=== PATIENT | male | born 1965 | race Caucasian/White ===

== ENCOUNTER 2018-05-27 16:24 | Outpatient (CLI) | payer MEDICARE | END 2018-05-27 16:25 | disposition home or self-care (01) | LOC: LAB 16:24 | PROVIDERS: ATTEND Internal Medicine | DX: M25.50 Pain in unspecified joint (principal); I10 Essential (primary) hypertension; E11.9 Type 2 diabetes mellitus without complications; K21.9 Gastro-esophageal reflux disease without esophagitis; Z87.891 Personal history of nicotine dependence; Z79.4 Long term (current) use of insulin | CPT/HCPCS: 36415; 84436; 84439; 85652; 86038; 86140; 86225; 86618 ==

== ENCOUNTER 2019-05-03 10:29 | Day surgery (SDC) | payer MEDICARE ==
[2019-05-03] MEDS ORDERED: NACL 0.9% 1000 ML 1,000 ML IV SCH (11:02)
[2019-05-03] MEDS ORDERED: DIPRIVAN 10 MG/ML IV ONE (11:14)
[2019-05-03] MEDS ORDERED: XYLOCAINE 2% INFILTRATI ONE (11:14)
--- NOTE | 2019-05-03 11:16 | Anesthesia Consultation ---
Anesthesia Consult and Med Hx Date of service: 05/03/19 - Airway Anesthetic Teeth Evaluation: Good (one loose) ROM Head & Neck: Adequate Mental/Hyoid Distance: Adequate Mallampati Class: Class III Intubation Access Assessment: Probably Good - Pulmonary Exam CTA: Yes - Cardiac Exam Cardiac Exam: No Murmur - Pre-Operative Health Status ASA Pre-Surgery Classification: ASA3 Proposed Anesthetic Plan: MAC - Pulmonary Hx Smoking: Yes (1 CIG A DAY) Hx Asthma: No COPD: No - Cardiovascular System Hx Hypertension: Yes - Central Nervous System Hx Seizures: No CVA: No - Endocrine Hx Cirrhosis: Yes Hx Liver Disease: Yes (HEPATITIS C, ESOPHAGEAL VARICES) Hx Insulin Dependent Diabetes: Yes (BS 98) - Hematic Hx Anemia: No - Other Systems Hx Alcohol Use: No
--- NOTE | 2019-05-03 11:16 | Anesthesia Day of Surgery ---
Anesthesia Day of Surgery - Day of Surgery Patient Examined: Yes Patient H&P Reviewed: Yes Patient is NPO: Yes Beta Blockers: Yes Cardiac Clearance: No Pulmonary Clearance: No
--- NOTE | 2019-05-03 11:38 | Short Stay Summary ---
Short Stay Documentation Date of service: 05/03/19 - History H&P: obtained from office - Allergies and Medications Current Medications: Allergies No Known Allergies Allergy (Verified 08/30/14 09:57) Home Medications Medication Instructions Recorded Confirmed Last Taken Type RX: Insulin Aspart [NovoLOG 22 units SC DAILY 08/30/14 05/03/19 05/02/19 History Flexpen] RX: Lansoprazole (Nf) [Prevacid 30 mg PO DAILY 08/30/14 05/03/19 05/02/19 History (Nf)] RX: Nadolol [Corgard] 40 mg PO QDAY #30 tablet 08/30/14 05/03/19 05/02/19 Rx RX: Furosemide [Lasix TAB] 1 tab PO DAILY 05/03/19 05/03/19 05/02/19 History RX: Zolpidem [Ambien] 1 tab PO HS 05/03/19 05/03/19 05/02/19 History Telmisartan 1 tab PO DAILY 05/03/19 05/03/19 05/02/19 History Active Medications Sodium Chloride (Nacl 0.9% 1000 Ml) 1,000 mls @ 50 mls/hr IV DIRECT TANNER Last Admin: 05/03/19 11:10 Dose: 50 mls/hr Documented by: - Brief post op/procedure progress note Date of procedure: 05/03/19 Procedure: see dictation Estimated blood loss: minimal Pathology: list (biopsies of sigmoid colon) Specimen disposition: to lab Condition: stable - Disposition Condition at discharge: Good Disposition: DC-01 TO HOME OR SELFCARE - Discharge Diagnoses (1) Hematochezia Status: Acute Short Stay Discharge Plan Activity: other (no driving for 24 hours) Weight Bearing Status: Weight Bear as Tolerated Diet: regular Follow up with: VINOD RODRIGUEZ MD [Primary Care Provider] - 7 Days Prescriptions: RX: Mesalamine 2.4 gm PO DAILY #60 tablet.
--- NOTE | 2019-05-03 11:42 | Operative Report ---
Operative Report Operative Report: Date of procedure: 05/03/2019 Preprocedure diagnosis: Daily hematochezia, history of possible ulcerative colitis. Rule out hemorrhoids. Post procedure diagnoses: Left-sided ulcerative colitis Procedure: Flexible sigmoidoscopy with biopsies of the sigmoid colon Endoscopist: Ke Flynn M.D. Estimated blood loss: Minimal Medications: Propofol per anesthesia After careful discussion of the nature and purpose of the procedure, risks, benefits, and alternatives consent was obtained. The patient was placed in the left lateral decubitus position and medicated per anesthesia-see separate records for details. A rectal exam was performed. Sphincter tone was normal and no masses were palpable. The tip of the Olympus upper video scope was passed transanally and advanced under continuous direct vision to 45 cm. Colon preparation was good. Findings included continuous inflammation from the rectum to 40 cm. The colon lining was granular with multiple tiny punctate ulcers. Above 40 cm the colon mucosa appeared normal. Minuses of the sigmoid colon were obtained. There was relatively less inflammation in the rectum although there was still some inflammation present. Findings were consistent with left-sided ulcerative colitis by appearance. No hemorrhoids were seen on forward and retroflexed views of the rectum. The procedure was well-tolerated overall. Conclusions: Left-sided ulcerative colitis. No hemorrhoids. Plan: Begin mesalamine-2.4 gm by mouth daily . Office follow-up in 3-4 weeks. Electronically signing: Ke Flynn M.D.
[2019-05-03 12:08] VITALS: BP 110/66
== END 2019-05-03 10:30 | disposition home or self-care (01) ==
LOC: GIO 10:29
PROVIDERS: ATTEND Internal Medicine Gastroenterology
DX: K52.89 Other specified noninfective gastroenteritis and colitis (principal); K51.50 Left sided colitis without complications; K62.5 Hemorrhage of anus and rectum; K74.60 Unspecified cirrhosis of liver; I10 Essential (primary) hypertension; E11.9 Type 2 diabetes mellitus without complications; Z79.4 Long term (current) use of insulin; Z79.899 Other long term (current) drug therapy; Z98.890 Other specified postprocedural states; Z86.2 Personal history of diseases of the blood and blood-forming organs and certain disorders involving the immune mechanism
CPT/HCPCS: 45331; 82962; 88305; J2704; J7030